=== PATIENT | female | born 1930 | race Caucasian/White ===

== ENCOUNTER → 2017-10-12 | Outpatient (CLI) | payer MEDICARE, OTHER | END | disposition home or self-care (01) | LOC: HKI 10:49 | DX: M17.0 Bilateral primary osteoarthritis of knee (principal); I10 Essential (primary) hypertension; Z87.891 Personal history of nicotine dependence | CPT/HCPCS: 73564; 73564-50 ==

== ENCOUNTER → 2018-04-13 | Outpatient (CLI) | payer MEDICARE, OTHER | END | disposition home or self-care (01) | LOC: HKI 14:20 | DX: M17.0 Bilateral primary osteoarthritis of knee (principal); M21.062 Valgus deformity, not elsewhere classified, left knee; M21.061 Valgus deformity, not elsewhere classified, right knee | CPT/HCPCS: 20610 ==